=== PATIENT | male | born 1970 | race Caucasian/White ===

== ENCOUNTER 2018-04-07 17:30 | Emergency (ER) | payer OTHER ==
--- NOTE | 2018-04-07 17:57 | Emergency Department Record ---
History of Present Illness - General Chief Complaint: Chest Pain Stated Complaint: CHEST PAIN Time Seen by Provider: 04/07/18 17:45 Source: Patient Mode of Arrival: Ambulatory Limitations: No limitations - History of Present Illness Initial Comments: The patient is here due to sharp R sided CP for 2 days. The pain was mild and intermittent yesterday and then slightly worse today. He had the pain for 5-6 minutes this AM at work and then it resolved. The pain then returned and was more severe on his ride home from work an hour ago. That episode lasted 15 minutes or so. There was no associated SOB, ELLIOTT, sweating or nausea with it. The patient also denies any recent CP with exertion, HULL, or cough. The patient has no cardiac risk factors. MD Complaint: Chest pain Onset/Timin -: Days(s) Onset: During rest Pain Location: Right chest Quality: Sharp Consistency: Intermittent, Now resolved Improves With: Nothing Worsens With: Nothing - Related Data Home Medications Medication Instructions Recorded Confirmed Last Taken Atorvastatin Calcium [Lipitor] 20 mg PO DAILY 04/07/18 04/07/18 04/07/18 Esomeprazole Magnesium [Nexium] 40 mg PO DAILY 04/07/18 04/07/18 04/07/18 Fluticasone Propionate [Flonase] 2 spray EACH NARES DAILY 04/07/18 04/07/18 Fluticasone/Salmeterol [Advair 1 each IH DAILY 04/07/18 04/07/18 04/07/18 250-50 Diskus] Metoprolol Succinate [Toprol Xl] 50 mg PO DAILY 04/07/18 04/07/18 04/07/18 Montelukast Sodium [Singulair] 10 mg PO QHS 04/07/18 04/07/18 04/06/18 Multivitamin [Daily Multiple 1 each PO DAILY 04/07/18 04/07/18 04/07/18 Vitamin] Phenylephrine HCl [Sudafed PE] 10 mg PO DAILY 04/07/18 04/07/18 Unknown Tadalafil [Cialis] 20 mg PO ASDIR 04/07/18 04/07/18 Unknown Allergies Allergy/AdvReac Type Severity Reaction Status Date / Time lisinopril AdvReac TACHYCARDIA Verified 04/07/18 17:33 Travel Screening - Travel/Exposure Within Last 30 Days Have you traveled within the last 30 days?: No - Travel/Exposure Within Last Year Have you traveled outside the [place] in the last year?: No - Additonal Travel Details Have you been exposed to anyone with a communicable illness?: No - Travel Symptoms Symptom Screening: None Review of Systems Constitutional: Denies: Chills, Fever Eyes: Denies: Eye discharge ENT: Denies: Congestion Respiratory: Denies: Cough, Dyspnea Cardiovascular: Reports: Chest pain. Denies: Arrhythmia, Dyspnea on exertion Endocrine: Denies: Fatigue Gastrointestinal: Denies: Abdominal pain Genitourinary: Denies: Dysuria Musculoskeletal: Denies: Arthralgia, Back pain Skin: Denies: Bruising Past Medical History - SOCIAL HISTORY Smoking Status: Never smoker Alcohol Use: Occasional Drug Use: None - RESPIRATORY Hx Respiratory Disorders: Yes Hx Asthma: Yes - CARDIOVASCULAR Hx Cardio Disorders: Yes Comment:: pre hypertension - NEURO Hx Neuro Disorders: No - GI Hx GI Disorders: Yes Hx Reflux: Yes - Hx Genitourinary Disorders: No - ENDOCRINE Hx Endocrine Disorders: No - MUSCULOSKELETAL Hx Musculoskeletal Disorders: No - PSYCH Hx Psych Problems: No - HEMATOLOGY/ONCOLOGY Hx Hematology/Oncology Disorders: No Family Medical History Any Significant Family History?: Yes Hx HTN: Mother, Grandparents Physical Exam - General General Appearance: Alert, Oriented x3, Cooperative, No acute distress - Head Head exam: Atraumatic, Normocephalic, Normal inspection - Eye Eye exam: Normal appearance, PERRL, EOMI - ENT Throat exam: Normal inspection. negative: Tonsillar erythema, Tonsillar exudate - Neck Neck exam: Normal inspection, Full ROM. negative: Tenderness - Respiratory Respiratory exam: Normal lung sounds bilaterally. negative: Chest wall tenderness, Respiratory distress - Cardiovascular Cardiovascular Exam: Regular rate, Normal rhythm, Normal heart sounds - GI/Abdominal GI/Abdominal exam: Soft, Normal bowel sounds. negative: Tenderness - Extremities Extremities exam: Normal inspection, Full ROM, Normal capillary refill. negative: Calf tenderness, Pedal edema, Tenderness - Back Back exam: Reports: Normal inspection - Neurological Neurological exam: Alert, Normal gait, Oriented X3. negative: Abnormal gait, Motor sensory deficit Course Vital Signs 04/07/18 17:42 Temperature 97.9 F Pulse Rate 81 Respiratory 18 Rate Blood Pressure 135/83 Pulse Ox 96 - Reevaluation(s) Reevaluation #1: The patient is doing very well at this time. He denies any new pain or discomfort. I did discuss the lab results with him and the fact he appears to have an iron deficiency anemia. He denies any black or bloody stools and does state he has been on oral steroids a lot this summer. We will set him up for a GI consultation with Dr[facility]ep[facility] for next week. Due to the elevated D-dimer we will order a chest CT and if neg will do a 2nd set of cardiac enzymes and if neg I do believe the patient can go home and F/U with his PCP. I did discuss the case with Dr. Aleman and he will assume care due to shift change. 04/07/18 19:01 Medical Decision Making - Data Complexity MDM Data: Labs Ordered and/or Reviewed, X-Ray Ordered and/or Reviewed, EKG Ordered and/or Reviewed - Lab Data Result diagrams: 04/07/18 17:50 04/07/18 17:50 - EKG Data -: EKG Interpreted by Me EKG: No Acute Changes, Normal EKG - Radiology Data Radiology results: Report reviewed (CXR: Neg.) Disposition Forms: Patient Portal Access Quality - Quality Measures Quality Measures: N/A - Blood Pressure Screening View Details: Yes Does Patient Have Any of the Following: No Blood Pressure Classification: Pre-Hypertensive BP Reading Systolic Measurement: 135 Diastolic Measurement: 83 Screening for High Blood Pressure: < Pre-Hypertensive BP, F/U Documented > [ G8950] Pre-Hypertensive Follow-up Interventions: Referral to alternative/primary care provider.
[2018-04-07 18:04] LABS: BASO % 0.7 % (0-6); EOS % 3.6 % (0-6); GRAN % 58.3 % (47-80); HEMATOCRIT 36.5 % (42.0-52.0); HEMOGLOBIN 10.8 gm/dl (14.0-18.0); LYMPH % 28.7 % (16-45); MEAN CELL VOLUME 74.8 fl (81-97); MEAN CORPUSCULAR HEMOGLOBIN 22.1 pg (27-33); MEAN CORPUSCULAR HGB CONC 29.6 g/dl (32-36); MEAN PLATELET VOLUME 8.8 fl (7.4-10.4); MONO % 8.7 % (0-9); PLATELET COUNT 497 K/uL (130-400); RED BLOOD COUNT 4.88 M/uL (4.40-5.70); RED CELL DISTRIBUTION WIDTH 16.6 % (11.5-14.5); WHITE BLOOD COUNT W/O DIFF 6.7 K/uL (4.2-12.2)
[2018-04-07 18:23] LABS: BLOOD UREA NITROGEN 12 mg/dL (6-20); CREATININE 0.9 mg/dL (0.7-1.2); EST GLOMERULAR FILTRATION RATE > 60 mL/min
[2018-04-07 18:26] LABS: GLUCOSE,RANDOM 94 mg/dL (74-109)
[2018-04-07 18:29] LABS: CREATINE PHOSPHOKINASE 91 U/L (39-308)
[2018-04-07 18:31] LABS: CKMB 1.3 ng/mL (<6.73)
[2018-04-07] MEDS ORDERED: 0.9 % SODIUM CHLORIDE 1,000 ML BAG IV ONE (18:46)
--- NOTE | 2018-04-07 20:41 | Emergency Department Record ---
History of Present Illness - General Chief Complaint: Chest Pain Stated Complaint: CHEST PAIN Time Seen by Provider: 04/07/18 17:45 Source: Patient Mode of Arrival: Ambulatory Limitations: No limitations - History of Present Illness Onset/Timin -: Days(s) Onset: During rest Pain Location: Right chest Quality: Sharp Consistency: Intermittent, Now resolved Improves With: Nothing Worsens With: Nothing - Related Data Home Medications Medication Instructions Recorded Confirmed Last Taken Atorvastatin Calcium [Lipitor] 20 mg PO DAILY 04/07/18 04/07/18 04/07/18 Esomeprazole Magnesium [Nexium] 40 mg PO DAILY 04/07/18 04/07/18 04/07/18 Fluticasone Propionate [Flonase] 2 spray EACH NARES DAILY 04/07/18 04/07/18 Fluticasone/Salmeterol [Advair 1 each IH DAILY 04/07/18 04/07/18 04/07/18 250-50 Diskus] Metoprolol Succinate [Toprol Xl] 50 mg PO DAILY 04/07/18 04/07/18 04/07/18 Montelukast Sodium [Singulair] 10 mg PO QHS 04/07/18 04/07/18 04/06/18 Multivitamin [Daily Multiple 1 each PO DAILY 04/07/18 04/07/18 04/07/18 Vitamin] Phenylephrine HCl [Sudafed PE] 10 mg PO DAILY 04/07/18 04/07/18 Unknown Tadalafil [Cialis] 20 mg PO ASDIR 04/07/18 04/07/18 Unknown Allergies Allergy/AdvReac Type Severity Reaction Status Date / Time lisinopril AdvReac TACHYCARDIA Verified 04/07/18 17:33 Travel Screening - Travel/Exposure Within Last 30 Days Have you traveled within the last 30 days?: No - Travel/Exposure Within Last Year Have you traveled outside the [place] in the last year?: No - Additonal Travel Details Have you been exposed to anyone with a communicable illness?: No - Travel Symptoms Symptom Screening: None Review of Systems Constitutional: Denies: Chills, Fever Eyes: Denies: Eye discharge ENT: Denies: Congestion Respiratory: Denies: Cough, Dyspnea Cardiovascular: Reports: Chest pain. Denies: Arrhythmia, Dyspnea on exertion Endocrine: Denies: Fatigue Gastrointestinal: Denies: Abdominal pain Genitourinary: Denies: Dysuria Musculoskeletal: Denies: Arthralgia, Back pain Skin: Denies: Bruising Past Medical History - SOCIAL HISTORY Smoking Status: Never smoker Alcohol Use: Occasional Drug Use: None - RESPIRATORY Hx Respiratory Disorders: Yes Hx Asthma: Yes - CARDIOVASCULAR Hx Cardio Disorders: Yes Comment:: pre hypertension - NEURO Hx Neuro Disorders: No - GI Hx GI Disorders: Yes Hx Reflux: Yes - Hx Genitourinary Disorders: No - ENDOCRINE Hx Endocrine Disorders: No - MUSCULOSKELETAL Hx Musculoskeletal Disorders: No - PSYCH Hx Psych Problems: No - HEMATOLOGY/ONCOLOGY Hx Hematology/Oncology Disorders: No Family Medical History Any Significant Family History?: Yes Hx HTN: Mother, Grandparents Physical Exam - General Limitations: No limitations Course Vital Signs 04/07/18 04/07/18 04/07/18 17:42 18:50 19:55 Temperature 97.9 F Pulse Rate 81 Pulse Rate [ 88 76 Crab Picker ] Respiratory 18 20 16 Rate Blood Pressure 135/83 Blood Pressure 131/88 [Left Arm] Blood Pressure 133/74 [Right Arm] Pulse Ox 96 96 98 - Reevaluation(s) Reevaluation #1: 04/07/18 20:39 CTA Chest: No acute process identified. Patient was updated on all results thus far, resting comfortably at this time. SO has gone to get food for the patient. 3-hour Troponin to be drawn 20:50. Reevaluation #2: 04/07/18 21:21 Repeat Troponin is negative for myocardial injury. Instructions for GI follow-up with Dr. Gordon has been arranged, patient is otherwise resting comfortably and appears stable for discharge at this time. Medical Decision Making - Lab Data Result diagrams: 04/07/18 17:50 04/07/18 17:50 Lab Results 04/07/18 04/07/18 04/07/18 Range/Units 17:50 17:50 17:50 WBC 6.7 (4.2-12.2) K/uL RBC 4.88 (4.40-5.70) M/uL Hgb 10.8 L (14.0-18.0) gm/dl Hct 36.5 L (42.0-52.0) % MCV 74.8 L (81-97) fl MCH 22.1 L (27-33) pg MCHC 29.6 L (32-36) g/dl RDW 16.6 H (11.5-14.5) % Plt Count 497 H (130-400) K/uL MPV 8.8 (7.4-10.4) fl Gran % 58.3 (47-80) % Lymphocytes % 28.7 (16-45) % Monocytes % 8.7 (0-9) % Eosinophils % 3.6 (0-6) % Basophils % 0.7 (0-6) % D-Dimer 0.56 (0-0.59) mg/L FEU Sodium 140 (136-145) mmol/L Potassium 3.9 (3.4-4.5) mmol/L Chloride 100 (98-107) mmol/L Carbon Dioxide 26.0 (22-29) mmol/L Anion Gap 14.0 (7-16) BUN 12 (6-20) mg/dL Creatinine 0.9 (0.7-1.2) mg/dL Estimated GFR > 60 mL/min Random Glucose 94 (74-109) mg/dL Calcium 9.0 (8.6-10.0) mg/dL Creatine Kinase 91 (39-308) U/L CK-MB (CK-2) 1.3 (<6.73) ng/mL Troponin T < 0.010 (0-0.010) ng/mL Disposition Disposition: Discharge Clinical Impression: Atypical chest pain Anemia Qualifiers: Anemia type: unspecified type Qualified Code(s): D64.9 - Anemia, unspecified Disposition: Home, Self-Care Condition: (2) Stable Instructions: Anemia (ED) Additional Instructions: Return to ED if your symptoms worsen or if you have any concerns. Follow-up with Dr. Gordon in the [facility] in 5-7 days as directed. Forms: Patient Portal Access Time of Disposition: 21:23 Quality - Quality Measures Quality Measures: N/A - Blood Pressure Screening Does Patient Have Any of the Following: No Blood Pressure Classification: Pre-Hypertensive BP Reading Systolic Measurement: 135 Diastolic Measurement: 83 Screening for High Blood Pressure: < Pre-Hypertensive BP, F/U Documented > [ G8950] Pre-Hypertensive Follow-up Interventions: Referral to alternative/primary care provider.
== END 2018-04-07 21:31 | disposition home or self-care (01) ==
LOC: ER 17:30
DX: R07.89 Other chest pain (principal); D64.9 Anemia, unspecified; R42 Dizziness and giddiness; R79.89 Other specified abnormal findings of blood chemistry
CPT/HCPCS: 99284 ×2; 96360; 82550; 85025; 82553; 80048; 84484; 85379; 71046; 71275; Q9967; A9500; J7030

== ENCOUNTER 2018-07-05 08:35 | Day surgery (SDC) | payer OTHER ==
[2018-07-05] MEDS ORDERED: PROPOFOL 10 MG/ML VIAL IV ONE (08:36)
[2018-07-05] MEDS ORDERED: LIDOCAINE 2% MDV (20MG/ML) 20ML VIAL IV ONE (08:36)
--- NOTE | 2018-07-05 16:50 | Operative Note ---
DATE OF SURGERY: 07/05/2018 OPERATION: ESOPHAGOGASTRODUODENOSCOPY with multiple biopsies. INDICATION: Iron deficiency anemia. HISTORY: The patient is a pleasant 48-year-old gentleman who was found to have iron deficiency anemia. He does donate blood approximately every 60 days. He denies any gross bleeding although he did relate at one point he thought he had black stools. He was given Hemoccult cards to complete by his primary care physician but failed to do so. He presents today for both upper and lower endoscopy for further evaluation of his anemia. ANESTHESIA: Intravenous sedation was administered by the department of anesthesiology and included Diprivan titrated to effect. PROCEDURE: Following informed consent from this alert individual, including a discussion of the risks and benefits of the procedure and an opportunity for the patient to ask questions, the patient was in the left lateral decubitus position. The Olympus [id number] video endoscope was inserted into the esophagus without resistance. The proximal esophagus had a normal appearance with normal folds and distensibility. The mid and distal esophagus likewise was free from changes. The stomach was entered and found to be unremarkable. The pylorus was patent. The duodenal bulb, sweep and descending duodenum were examined in a serial fashion and found to be normal. Random biopsies were taken from the duodenal bulb and second portion of the duodenum to rule out the remote possibility of iron malabsorption of celiac sprue. The endoscope was then drawn back into the body of the stomach. Retroflexion accomplished following air insufflation failed to demonstrate any additional changes. The endoscope was straightened and withdrawn through a normal esophagus and removed from the patient. He tolerated procedure well and was returned to the recovery area in stable condition. IMPRESSION: Unremarkable esophagogastroduodenoscopy. Biopsies taken from the duodenum as described. RECOMMENDATION: The patient will undergo colonoscopy at this time. Further recommendations will be forthcoming pending results of pathology. The patient will be following up with Dr. Li. As always, thank you for allowing me to participate in the care of your patient. CC: MD RAJ Moran
--- NOTE | 2018-07-05 16:50 | Operative Note ---
DATE OF SURGERY: 07/05/2018 OPERATION: COLONOSCOPY to the cecum and terminal ileum with cold forceps polypectomy. INDICATION: Iron deficiency anemia. The patient denies any history of rectal bleeding or persistent stool irregularity. ANESTHESIA: Intravenous sedation was administered by the department of anesthesiology and included Diprivan titrated to effect. PROCEDURE: Following informed consent from this alert individual including a discussion of the risks and benefits of the procedure and an opportunity for the patient to ask questions, the patient was in the left lateral decubitus position. A digital rectal examination was performed. No abnormalities were noted. Following this, the Olympus [id number] video colonoscope was inserted into the rectum without resistance. The rectal mucosa had a normal appearance with normal folds and distensibility. The colonoscope was advanced up through the colon to the level of the cecum without much difficulty. Throughout the bowel the mucosa appeared normal, the folds were normal, and the bowel was fairly well distensible. There was some retained liquid and semi-solid stool noted in the left colon. Washing and suctioning was employed vigorously with adequate visualization. The cecum was defined by noting the appendiceal orifice and ileocecal valve. The terminal ileum was cannulated and found to be unremarkable. From the base of the cecum, the colonoscope was then withdrawn after retroflexion was accomplished. No abnormalities were detected until the rectum was reached. In the distal rectum, there was a diminutive 3-4 mm polyp noted which was removed with cold biopsy forceps. There was copious bleeding initially but this seemed to slow and stop. An Endoclip was placed to prevent any further bleeding. Retroflexion in the rectum was endoscopically normal. The endoscope was straightened and removed. The patient tolerated the procedure well and was returned to the recovery area in stable condition. IMPRESSION: 1. A 3-4 mm distal rectal polyp removed with biopsy forceps. 2. Otherwise normal colon and terminal ileum as visualized. RECOMMENDATIONS: The patient was asked to follow up with Dr. Li for further evaluation of his anemia. He was advised to not donate blood for the next several months. Further recommendations will be forthcoming pending results of pathology obtained today. As always, thank you for allowing me to participate in the care of your patient. CC: Yefri Li MD [facility] HOSPITALJeremy
== END 2018-07-05 10:30 | disposition home or self-care (01) ==
LOC: HOP 08:35
PROVIDERS: ATTEND Internal Medicine Gastroenterology
DX: D50.9 Iron deficiency anemia, unspecified (principal); K62.1 Rectal polyp; I10 Essential (primary) hypertension; E78.00 Pure hypercholesterolemia, unspecified; K21.9 Gastro-esophageal reflux disease without esophagitis; J45.909 Unspecified asthma, uncomplicated